=== PATIENT | female | born 1980 | race Two or more races ===

== ENCOUNTER 2017-03-16 08:16 | Inpatient (IN) | payer OTHER ==
[2017-03-16] MEDS ORDERED: Dinoprostone* 10 MG VAG.SUPP VAGINAL ONE (09:40)
--- NOTE | 2017-03-16 10:05 | PN ---
L&D Outpatient: Visit - Reproductive Information Estimated Due Date: 03/08/17 Gestational Age: 41 Weeks and 1 Days : 3 Para: 1 - 1011 - Reason for Visit Visit Reason: Postdates cervical ripening - Antepartal Records Antepartal Record: Reviewed, Uncomplicated - Patient History Patient History Significant: Yes Patient History Significant For: AMA Age 36 at [place] Hx pre-eclampsia with first . Delivered at 37 weeks Hx Depression/Anxiety - no current medications L&D Outpatient: ROS - Review of Systems CV Complaint: No Respiratory: Shortness of Breath: No Gastrointestinal: No Nausea/Vomiting, Normal Bowel Movement Genitourinary: No Dysuria Musculoskeletal: No Complaint Movement: Normal L&D Outpatient: Exam Vitals - Most Recent: BP 124/60 HR 82 RR 18 T 97.9 - Cervical Exam Cervical Exam: 1cm/long/vtx -2 - Abdominal Exam Abdomen Exam: Non-Tender, Fundal Height Consistent with Dates - Membranes Membrane Status: Intact - Ultrasound/Biophysical Profile Ultrasound Status: Not Done L&D Outpatient: EFM - External Monitor Findings Baseline Heart Rate: 120 External Monitor Findings: Accelerations Present, No Pattern of Variable or Late Decelerations, Variability Moderate, Baseline Stable External Monitor Findings Comment: No evidence of metabolic acidemia L&D Outpatient: Asses/Plan Assessment: A: Postdates at 41-1/7 weeks Unfavorable cervix for induction No evidence of metabolic acidemia P: PARQ cervical ripening with misoprostol vs. cervidil. Discussed pros/cons and risks/benefits to each medication. After pt and FOB reviewed consent to cervical ripening with Cervidil. Placed at 0955 without difficulty. Monitor per protocol. Remove in 12 hours or sooner PRN onset active labor, tachysystole, concerns.
[2017-03-17] MEDS ORDERED: Ibuprofen TAB* 600 MG ONE (07:32)
[2017-03-17] MEDS ORDERED: Dibucaine 1% 28.35 GM TUBE PR PRN (10:34)
[2017-03-17] MEDS ORDERED: Glycerin ADULT SUPP PR PRN (10:34)
[2017-03-17] MEDS ORDERED: Witch Hazel PAD* JAR TOPICAL PRN (10:34)
[2017-03-17] MEDS ORDERED: Acetaminophen TAB* 325 MG PO PRN (10:34)
[2017-03-17] MEDS ORDERED: Simethicone TAB* 80 MG TAB.CHEW PO SCH (12:30)
[2017-03-17] MEDS: Docusate CAP* 100 MG PO SCH ×2 (13:38→21:35)
[2017-03-17] MEDS: Ibuprofen TAB* 600 MG PO PRN ×2 (13:38→21:35)
[2017-03-18] MEDS: Ibuprofen TAB* 600 MG PO PRN ×3 (06:50→20:21)
[2017-03-18] MEDS ORDERED: Ferrous Gluconate TAB* 324 MG TAB PO SCH (09:00)
[2017-03-18 10:40] LABS: Hematocrit 40 % (35-47); Hemoglobin 13.2 g/dl (12.0-16.0); Mean Corpuscular HGB Conc 33 g/dl (31-36); Mean Corpuscular Hemoglobin 30 pg (27-31); Mean Corpuscular Volume 91 fL (80-97); Mean Platelet Volume 8 um3 (7.4-10.4); Red Blood Count 4.37 10^6/ul (4.0-5.4); Red Cell Distribution Width 17 % (10.5-15); White Blood Count 12.2 10^3/ul (3.5-10.8)
[2017-03-18] MEDS: Docusate CAP* 100 MG PO SCH ×3 (10:55→20:22)
--- NOTE | 2017-03-18 15:26 | PTEDU ---
Patient Name: MESHA VILLEGAS GOVINDMESHA GERONIMO selected video: Never Ever Shake a Baby to view on 03/18/2017 at 3:25:17 PM from [id number]
[2017-03-19] MEDS: Ibuprofen TAB* 600 MG PO PRN (06:05)
[2017-03-19] MEDS: Docusate CAP* 100 MG PO SCH (08:49)
[2017-03-19 08:57] VITALS: BP 116/78
== END 2017-03-19 11:34 | disposition home or self-care (01) | DRG 775 ==
LOC: MCHOBOUT 08:16 → MCHOB 22:30
PROVIDERS: ADMIT Midwife; ATTEND Midwife
PROC: 4A1HX4Z Monitoring of Products of Conception, Cardiac Electrical Activity, External Approach (ICD-10-PCS; principal; 2017-03-17)
PROC: 10E0XZZ Delivery of Products of Conception, External Approach (ICD-10-PCS; 2017-03-17)
PROC: 0KQM0ZZ Repair Perineum Muscle, Open Approach (ICD-10-PCS; 2017-03-17)
PROC: 3E0P7VZ Introduction of Hormone into Female Reproductive, Via Natural or Artificial Opening (ICD-10-PCS; 2017-03-17)
DX: O48.0 Post-term pregnancy (principal); O43.123 Velamentous insertion of umbilical cord, third trimester; O69.81X0 Labor and delivery complicated by cord around neck, without compression, not applicable or unspecified; O77.0 Labor and delivery complicated by meconium in amniotic fluid; O70.1 Second degree perineal laceration during delivery; Z37.0 Single live birth; Z3A.41 41 weeks gestation of pregnancy
CPT/HCPCS: 36415; 85025; A9270-GY